=== PATIENT | female | born 1955 | race Caucasian/White ===

== ENCOUNTER 2022-05-03 09:03 | Inpatient (IN) | payer MEDICARE ==
[~2022-05-03] VITALS: Ht 157.5 cm; Wt 39.5 kg
--- NOTE | 2022-05-03 09:26 | NUR ---
Patient BIB [facility] from home. Per report from rescue, patient was found on bathroom unable to get up c/o weakness. 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 Patient upon arrival A/Ox3 c/o neck pain.
--- NOTE | 2022-05-03 09:32 | NUR ---
Dr. Modi on bedside for MSE.
[2022-05-03] MEDS ORDERED: ONDANSETRON 4 MG/2 ML VIAL ONE (09:39)
[2022-05-03] MEDS ORDERED: ONDANSETRON HCL 4 MG TABLET PO ONE (09:45)
[2022-05-03] MEDS ORDERED: IV NORMAL SALINE 1000 ML BAG IV ONE ×2 (09:45→10:30)
[2022-05-03 09:57] LABS: HEMATOCRIT 40.9 % (31.2-41.9); MEAN CORPUSCULAR HEMOGLOBIN 33.3 uug (24.7-32.8); MEAN CORPUSCULAR VOLUME 98.7 fL (75.5-95.3); PLATELET COUNT (AUTO) 252 K/uL (179-408)
[2022-05-03 10:08] LABS: CARBON DIOXIDE 24 mmol/L (21-32); CHLORIDE 111 mmol/L (98-107); CREATININE 1.1 mg/dL (0.6-1.3); GLUCOSE 154 mg/dL (74-106); POTASSIUM 3.5 mmol/L (3.5-5.1); UREA NITROGEN, BLOOD 15 mg/dL (7-18)
[2022-05-03] MEDS ORDERED: CEFTRIAXONE /D5W 50ML IVPB **ER PYXIS IV ONE (10:20)
[2022-05-03 10:23] LABS: *URINE HCG, QUAL NEG (NEGATIVE)
[2022-05-03] MEDS ORDERED: CEFTRIAXONE 1 G in IV DEXTROSE 5% 50 ML IV ONE (10:30)
[2022-05-03] MEDS ORDERED: CLON1TAB12 PO (10:33)
[2022-05-03] MEDS ORDERED: BUTA1CAP5 PO (10:33)
[2022-05-03] MEDS ORDERED: LEVO25TA2 PO (10:33)
--- NOTE | 2022-05-03 10:33 | NUR ---
PATIENT AND PATIENT'S SISTER UNABLE TO RECALL ALL HOME MEDICATIONS AND DOSAGES AT THIS TIME. PATIENT'S SISTER WILL BRING LIST OF MEDICATION SOON SHE CAN.
--- NOTE | 2022-05-03 10:39 | NUR ---
Epic panel call placed, spoke to Renny , he stated she will get a hold of [facility] for admitting.
[2022-05-03] MEDS ORDERED: AZITHROMYCIN 500MG/ D5W 250ML IVPB **ER PYXIS ONLY IV ONE (10:42)
[2022-05-03] MEDS ORDERED: AZITHROMYCIN IV 500 MG in IV DEXTROSE 5% 250 ML IV ONE (10:45)
--- NOTE | 2022-05-03 10:59 | NUR ---
[facility] cam to ER and spoke to Dr Modi.
[2022-05-03] MEDS ORDERED: ONDANSETRON 4 MG/2 ML VIAL IV PRN (11:30)
[2022-05-03] MEDS ORDERED: MAGNESIUM HYDROXIDE 30 ML LIQUID UDC PO PRN (11:30)
[2022-05-03] MEDS ORDERED: TEMAZEPAM 15 MG CAPSULE PO PRN (11:30)
[2022-05-03] MEDS ORDERED: REMEDY ESSENTIAL ZINC PASTE 113 GM TP PRN (11:30)
[2022-05-03] MEDS ORDERED: MORPHINE SULFATE 2 MG/1 ML DISP.SYRIN IV PRN (11:30)
[2022-05-03 12:25] LABS: BILIRUBIN,DIRECT 0.1 mg/dL (0.0-0.2); BILIRUBIN,TOTAL 0.3 mg/dL (0.2-1.0)
--- NOTE | 2022-05-03 12:57 | NUR ---
Pt. admitted to [facility] unit, Room 307 , under care of [facility]. Report given to MERCED Bartlett. Belongs List completed.
[2022-05-03] MEDS: IV NS 1000 ML 1,000 ML IV PRN (13:25)
[2022-05-03] MEDS: ACETAMINOPHEN 325 MG TABLET PO PRN ×2 (14:57→22:10)
--- NOTE | 2022-05-03 15:18 | NUR ---
Patient wants to be placed on DNR. Nic BEVERAGE DISTILLER notified. Will endorse information to contact corrections caseworker for paper to be signed by patient. For now, patient is a full code.
[2022-05-03 16:31] VITALS: BP 153/66
--- NOTE | 2022-05-03 18:53 | NUR ---
Patient tolerated care well throughout shift. Patient wanting to be on DNR. Will endorse information to contact test case developer to have paper filled out by test case developer. IV site patent and intact. Patient's sister at bedside curious about patient's plan of care. Bed left in lowest position with call light within reach. Comfort measures provided. Will endorse information to PM nurse.
[2022-05-03 20:00] VITALS: BP 145/61
[2022-05-04] MEDS: IV NS 1000 ML 1,000 ML IV PRN (03:55)
[2022-05-04 04:29] VITALS: BP 143/65
--- NOTE | 2022-05-04 06:03 | NUR ---
Patient slept intermittently during the night, no acute distress noted. Denies any pain or discomfort. Assisted to the bathroom 3x throughout the shift. Right antecubital IV access intact and patent with NS infusing @ 75ml/hr. Bed in low and locked position. Call light within easy reach.
[2022-05-04 06:17] LABS: HEMATOCRIT 38.9 % (31.2-41.9); MEAN CORPUSCULAR HEMOGLOBIN 32.8 uug (24.7-32.8); MEAN CORPUSCULAR VOLUME 97.4 fL (75.5-95.3); PLATELET COUNT (AUTO) 203 K/uL (179-408)
[2022-05-04 06:27] LABS: CREATININE 0.6 mg/dL (0.6-1.3); MAGNESIUM 2.1 mg/dL (1.8-2.4); PHOSPHOROUS 2.8 mg/dL (2.5-4.9); POTASSIUM 3.1 mmol/L (3.5-5.1)
[2022-05-04] MEDS: PANTOPRAZOLE SODIUM 40 MG TABLET.DR PO SCH (06:29)
[2022-05-04 06:32] LABS: THYROID STIMULATING HORMONE 0.334 mIU/mL (0.358-3.740)
[2022-05-04] MEDS ORDERED: LEVOTHYROXINE SODIUM 175 MCG TABLET PO SCH (09:00)
[2022-05-04] MEDS: LEVOTHYROXINE SODIUM 150 MCG TABLET PO SCH (09:28)
[2022-05-04] MEDS: HYDROCODONE/APAP 5-325MG TABLET PO PRN (09:30)
[2022-05-04 10:00] VITALS: BP 143/65
[2022-05-04] MEDS ORDERED: CEFTRIAXONE 1 G in IV DEXTROSE 5% 50 ML IV SCH (10:00)
[2022-05-04] MEDS ORDERED: POTASSIUM CHLORIDE 20 MEQ TAB.PRT.SR PO ONE (10:00)
[2022-05-04] MEDS ORDERED: AZITHROMYCIN IV 500 MG in IV DEXTROSE 5% 250 ML IV SCH (11:00)
[2022-05-04] MEDS: AZITHROMYCIN 250 MG TABLET PO SCH (11:06)
[2022-05-04 11:56] VITALS: BP 149/74
[2022-05-04] MEDS ORDERED: LEVO175T7 PO (12:05)
[2022-05-04] MEDS ORDERED: PROP20TA7 PO (12:15)
[2022-05-04] MEDS ORDERED: FLUO20CA42 PO (12:15)
[2022-05-04] MEDS ORDERED: MEGE400O5 PO (12:15)
[2022-05-04] MEDS ORDERED: MIRT-93 PO (12:15)
[2022-05-04] MEDS ORDERED: TIZA4TAB5 PO (12:17)
[2022-05-04] MEDS ORDERED: BETH10TA2 PO (12:17)
[2022-05-04] MEDS ORDERED: TAMS-3 PO (12:17)
[2022-05-04 16:00] VITALS: BP 136/69
[2022-05-04] MEDS: TIZANIDINE HCL 4 MG TABLET PO PRN (17:56)
[2022-05-04] MEDS: BETHANECHOL CHLORIDE 10 MG TABLET PO SCH (17:56)
[2022-05-04] MEDS: PROPRANOLOL HCL 20 MG TABLET PO SCH (17:57)
[2022-05-04 19:49] VITALS: BP 114/50
[2022-05-04] MEDS: TAMSULOSIN HCL 0.4 MG CAP.SR.24H PO SCH (20:50)
[2022-05-04] MEDS: MIRTAZAPINE 15 MG TABLET PO SCH (20:50)
[2022-05-05 04:33] VITALS: BP 165/77
[2022-05-05] MEDS: IV NS 1000 ML 1,000 ML IV PRN ×2 (05:05→20:34)
[2022-05-05] MEDS: PANTOPRAZOLE SODIUM 40 MG TABLET.DR PO SCH (06:23)
[2022-05-05] MEDS: LEVOTHYROXINE SODIUM 150 MCG TABLET PO SCH (06:23)
--- NOTE | 2022-05-05 06:29 | NUR ---
Patient slept well during the night. Denies pain/discomfort. In no acute distress. Assisted to the bathroom. IV access to right AC infiltrated, removed and reinserted new IV access to left AC. Kept clean dry and comfortable. Bed kept in locked and low position. Call light within easy reach.
[2022-05-05] MEDS ORDERED: LEVOTHYROXINE SODIUM 50 MCG TABLET PO SCH (07:00)
[2022-05-05 07:06] LABS: HEMATOCRIT 39.1 % (31.2-41.9); MEAN CORPUSCULAR HEMOGLOBIN 33.9 uug (24.7-32.8); MEAN CORPUSCULAR VOLUME 97.8 fL (75.5-95.3); PLATELET COUNT (AUTO) 204 K/uL (179-408)
[2022-05-05 07:15] LABS: CREATININE 0.6 mg/dL (0.6-1.3)
[2022-05-05] MEDS: TIZANIDINE HCL 4 MG TABLET PO PRN (08:28)
[2022-05-05] MEDS: FLUOXETINE HCL 20 MG CAPSULE PO SCH (08:28)
[2022-05-05] MEDS: PROPRANOLOL HCL 20 MG TABLET PO SCH ×3 (08:29→17:00)
[2022-05-05] MEDS: MEGESTROL ACETATE 400 MG/10 ML LIQUID UDC PO SCH (08:29)
[2022-05-05] MEDS: BETHANECHOL CHLORIDE 10 MG TABLET PO SCH ×3 (08:32→17:03)
[2022-05-05] MEDS ORDERED: POTASSIUM CHLORIDE 20 MEQ TAB.PRT.SR PO ONE ×2 (09:00→14:00)
[2022-05-05] MEDS ORDERED: CLONAZEPAM 0.5 MG TABLET PO PRN (09:00)
--- NOTE | 2022-05-05 09:46 | NUR ---
Awake alert and oriented to name. Confused states she's in cruise, was reoriented. Noted with good appetite, no nausea/vomiting. IVF infusing as ordered no signs of infiltration noted. Due meds given and tolerated. Comfortable on room air no acute distress. Kept clean and comfortable. Call light in reach. Will cont to monitor.
[2022-05-05] MEDS: ENSURE ENLIVE (VAN) 240 ML LIQUID PO SCH ×2 (11:04→17:02)
[2022-05-05] MEDS: PROTEIN SUPPLEMENT (PROSTAT) 30 ML LIQUID PO SCH ×2 (11:04→17:03)
[2022-05-05] MEDS: AZITHROMYCIN 250 MG TABLET PO SCH (12:30)
[2022-05-05 12:53] VITALS: BP 130/60
[2022-05-05] MEDS: HYDROCODONE/APAP 5-325MG TABLET PO PRN ×2 (14:20→19:58)
--- NOTE | 2022-05-05 15:13 | NUR ---
Patient very agitated, getting off the bed and wanting to go home. Not aware of safety needs. Reoriented prn but confused and forgetful. Put in reclining chair comfortably. Addendum: 05/05/22 at 1516 by SHANE FERNANDEZ RN And monitored closely
[2022-05-05] MEDS: LORAZEPAM 2 MG/1 ML VIAL IV PRN ×2 (16:06→22:06)
[2022-05-05 16:40] VITALS: BP 101/76
[2022-05-05] MEDS ORDERED: HALOPERIDOL DECANOATE 50 MG/1 ML AMPUL IM ONE (17:45)
[2022-05-05] MEDS ORDERED: diphenhydrAMINE 50 MG/1 ML VIAL IM ONE (17:45)
[2022-05-05] MEDS ORDERED: HALOPERIDOL LACTATE 5 MG/1 ML VIAL IM ONE (17:45)
--- NOTE | 2022-05-05 18:30 | NUR ---
SISTER LEAVING AT THIS TIME. CALM AND CHEERFUL. WATCHING TV, MEDS FOR AGITATION HELD.
[2022-05-05] MEDS: MIRTAZAPINE 15 MG TABLET PO SCH (20:02)
[2022-05-05] MEDS: TAMSULOSIN HCL 0.4 MG CAP.SR.24H PO SCH (20:03)
[2022-05-05 20:09] VITALS: BP 132/66
--- NOTE | 2022-05-05 22:00 | NUR ---
VERY AGITATED AND CLIMBING OUT OF BED. MED WITH ATIVAN FOR AGITATION & HALLUCINATION. ASSISTED TO BATHROOM & VOIDED QS WITH SMALL STOOL. RETURNED TO BED.
--- NOTE | 2022-05-05 23:00 | NUR ---
DR. BROCK CALLED TO SEE PATIENT. PATIENT ASLEEP AT THIS TIME.
--- NOTE | 2022-05-05 23:30 | NUR ---
AWAKE AND DROWSY. CALM AT THIS TIME. MED EFFECTIVE.
[2022-05-06 04:20] VITALS: BP 164/84
[2022-05-06] MEDS: PANTOPRAZOLE SODIUM 40 MG TABLET.DR PO SCH (06:03)
[2022-05-06] MEDS: LEVOTHYROXINE SODIUM 150 MCG TABLET PO SCH (06:03)
[2022-05-06 06:28] LABS: HEMATOCRIT 41.9 % (31.2-41.9); MEAN CORPUSCULAR HEMOGLOBIN 33.2 uug (24.7-32.8); MEAN CORPUSCULAR VOLUME 96.5 fL (75.5-95.3); PLATELET COUNT (AUTO) 218 K/uL (179-408)
[2022-05-06 06:45] LABS: CREATININE 0.7 mg/dL (0.6-1.3); POTASSIUM 3.7 mmol/L (3.5-5.1)
[2022-05-06] MEDS ORDERED: CLONAZEPAM 1 MG TABLET PO PRN (07:15)
--- NOTE | 2022-05-06 08:00 | NUR ---
Received in bed awake, agitated, climbing off the bed stating she wants to go home, risk for fall confused but able to be redirected sometimes. No acute distress. Reoriented prn. Seen and examined by Tool Honing Machine Set Up Operator cassidy ordered to give klonopin for anxiety. Removed her Iv and refused to have another one inserted. Assisted with hygiene needs by PT. Kept comfortable. Needs attended.
[2022-05-06] MEDS: FLUOXETINE HCL 20 MG CAPSULE PO SCH (08:47)
[2022-05-06] MEDS: MEGESTROL ACETATE 400 MG/10 ML LIQUID UDC PO SCH (08:48)
[2022-05-06] MEDS: PROPRANOLOL HCL 20 MG TABLET PO SCH ×3 (08:48→17:08)
[2022-05-06] MEDS: BETHANECHOL CHLORIDE 10 MG TABLET PO SCH ×3 (08:48→17:08)
[2022-05-06] MEDS: PROTEIN SUPPLEMENT (PROSTAT) 30 ML LIQUID PO SCH ×2 (08:49→17:08)
[2022-05-06] MEDS: ENSURE ENLIVE (VAN) 240 ML LIQUID PO SCH ×2 (08:49→17:08)
--- NOTE | 2022-05-06 11:20 | NUR ---
WOUND CARE CONSULT: PT PRESENTS VERY THIN AND BONY WITH MULTIPLE DEEP TISSUE INJURIES (INTACT) TO UPPER/MIDBACK, SACRAL AREA AND RT HIP REGION, ALLL PRESENT ON ADMISSION. SPOKE WITH PT'S SISTER AT BEDSIDE WHO STATES THAT SHE IS NOT SURE HOW LONG PT WAS DOWN IN THE BATHROOM. RECOMMENDATIONS MADE FOR SKIN PROTECTION AND WOUND CARE. DISCUSSED WITH NURSING STAFF AND PT'S SISTER. DIETARY CONSULT IN PLACE. MD IN AGREEMENT WITH PLAN OF CARE.
[2022-05-06 12:05] VITALS: BP 119/60
[2022-05-06 15:45] VITALS: BP 119/67
--- NOTE | 2022-05-06 16:32 | NUR ---
Report given to RN Norman for continuation of care.
[2022-05-06 17:08] VITALS: BP 119/60
--- NOTE | 2022-05-06 18:47 | NUR ---
Pt with sister at bedside assisting pt with her feeding. Educated sister re: Aspiration precautions during feed. HOB elevated. PT ambulated to bathroom with SBA. PT denies any c/o pain. Call light is within reach.
== END 2022-05-06 19:00 | DRG 871 ==
LOC: ER 09:03 → MEDSURG3 12:01
PROVIDERS: ADMIT Nurse Practitioner Acute Care; ATTEND Nurse Practitioner Acute Care
DX: A41.9 Sepsis, unspecified organism (principal); J15.9 Unspecified bacterial pneumonia; E87.2 Acidosis; M62.82 Rhabdomyolysis; E87.0 Hyperosmolality and hypernatremia; E03.9 Hypothyroidism, unspecified; E86.1 Hypovolemia; Z87.820 Personal history of traumatic brain injury; R53.1 Weakness; Z20.822 Contact with and (suspected) exposure to COVID-19; Z91.81 History of falling; R53.82 Chronic fatigue, unspecified; E87.6 Hypokalemia; F32.A Depression, unspecified; G93.89 Other specified disorders of brain; F07.81 Postconcussional syndrome
CPT/HCPCS: 36415; 70450; 71045; 72125; 83605; 83735; 84100; 84443; 84484; 84703; 85025; 85730; 87040; 93005; 97161; A4663; A6209; G0378; J0456; J0696; J2060; J2405; J7040; J7050; J8999; Q0144

== ENCOUNTER 2022-05-06 20:15 | Inpatient (IN) | payer MEDICARE ==
[~2022-05-06] VITALS: Ht 167.6 cm; Wt 39.0 kg
[~2022-05-06 20:15] MED LIST: BETH10TA2 PO; CLON1TAB12 PO; FLUO20CA42 PO; LEVO175T7 PO; MEGE400O5 PO; MIRT-93 PO; PROP20TA7 PO; TAMS-3 PO; TIZA4TAB5 PO
[2022-05-06 20:45] VITALS: BP 131/63
[2022-05-06] MEDS ORDERED: REMEDY ESSENTIAL ZINC PASTE 113 GM TOP PRN (20:45)
[2022-05-06] MEDS: risperiDONE 0.5 MG TABLET PO SCH (22:57)
[2022-05-06] MEDS: MIRTAZAPINE 15 MG TABLET PO SCH (22:57)
--- NOTE | 2022-05-07 03:59 | NUR ---
Admitted a 67 yr old female admittede from [facility] to rehab with admitting diagnosis of pneumonia/sepsis. Hx of TBI, HTN and falls. Awake,alert and oriented x1. Confused and disoriented. All needs attended. Seen by Dr Godoy last evening. Incontinent of bowel and bladder. Kept clean and dry. No BM noted this shift. VSS. Will monitor patient. Skin with some bruising noted along the spinal cord area, right hip and sacral area. Mepilex applied. Will monitor patient. All due meds given. Siderails up for safety.
[2022-05-07 05:09] VITALS: BP 144/74
[2022-05-07] MEDS: LEVOTHYROXINE SODIUM 150 MCG TABLET PO SCH (06:10)
[2022-05-07 08:00] VITALS: BP 136/81
[2022-05-07] MEDS: FLUOXETINE HCL 20 MG CAPSULE PO SCH (08:59)
[2022-05-07] MEDS: BETHANECHOL CHLORIDE 10 MG TABLET PO SCH ×3 (08:59→17:07)
[2022-05-07] MEDS: CLONAZEPAM 1 MG TABLET PO SCH (08:59)
[2022-05-07] MEDS: MEGESTROL ACETATE 400 MG/10 ML LIQUID UDC PO SCH (08:59)
[2022-05-07] MEDS: risperiDONE 0.5 MG TABLET PO SCH ×2 (08:59→20:24)
[2022-05-07] MEDS: PROPRANOLOL HCL 20 MG TABLET PO SCH ×3 (09:01→17:07)
[2022-05-07 16:01] VITALS: BP 120/82
[2022-05-07 20:00] VITALS: BP 137/74
[2022-05-07] MEDS: TAMSULOSIN HCL 0.4 MG CAP.SR.24H PO SCH (20:19)
[2022-05-07] MEDS: MIRTAZAPINE 15 MG TABLET PO SCH (20:21)
[2022-05-07] MEDS: NEOMY/BACITRAC/POLYMI OINT 28.35 GM TUBE TOP SCH (21:00)
[2022-05-07] MEDS ORDERED: MIRTAZAPINE 15 MG TABLET PO SCH (21:00)
[2022-05-08 04:00] VITALS: BP 150/88
--- NOTE | 2022-05-08 04:23 | NUR ---
Awake alert and oriented x1-2 Confused and disoriented. VSS Needs attended. Fall precautions maintained. Tolerated po meds well. Incontinent of bowel and bladder. Kept clean and dry. Siderails up for safety. No complaints presented during the shift.
[2022-05-08] MEDS: LEVOTHYROXINE SODIUM 150 MCG TABLET PO SCH (06:14)
[2022-05-08 08:00] VITALS: BP 163/80
[2022-05-08] MEDS: CLONAZEPAM 1 MG TABLET PO SCH (08:25)
[2022-05-08] MEDS: PROPRANOLOL HCL 20 MG TABLET PO SCH ×3 (08:25→17:02)
[2022-05-08] MEDS: FLUOXETINE HCL 20 MG CAPSULE PO SCH (08:26)
[2022-05-08] MEDS: risperiDONE 0.5 MG TABLET PO SCH ×2 (08:26→20:20)
[2022-05-08] MEDS: MEGESTROL ACETATE 400 MG/10 ML LIQUID UDC PO SCH (08:26)
[2022-05-08] MEDS: TIZANIDINE HCL 4 MG TABLET PO PRN (08:27)
[2022-05-08] MEDS: BETHANECHOL CHLORIDE 10 MG TABLET PO SCH ×3 (08:28→17:03)
[2022-05-08] MEDS: NEOMY/BACITRAC/POLYMI OINT 28.35 GM TUBE TOP SCH (08:28)
[2022-05-08] MEDS: PROTEIN SUPPLEMENT (PROSTAT) 30 ML LIQUID PO SCH (10:49)
[2022-05-08] MEDS: GLUCERNA SHAKE 237 ML CAN PO SCH ×2 (12:26→17:03)
--- NOTE | 2022-05-08 12:26 | NUR ---
WOUND CARE CONSULT: PT FOLLOWED BY PLASTIC SURGERY TEAM FOR DEEP TISSUE INJURIES/ABRASIONS WHICH WERE NOTED TO BE PRESENT ON ADMISSION TO UPPER/MIDBACK, SACRUM AND RT HIP. DEFER TO [facility] FOR WOUND TREATMENT PLAN. DISCUSSED SKIN PROTECTION WITH NURSING STAFF. MD IN AGREEMENT WITH PLAN OF CARE.
--- NOTE | 2022-05-08 12:38 | NUR ---
INTERDISCIPLINARY TEAM CONFERENCE
--- NOTE | 2022-05-08 14:55 | NUR ---
Awake,alert and oriented x2-3. Confused and disoriented at times . Sister at bed side .Seen by the wound hr shared services consultant nurse. Incontinent of bowel and bladder. Kept clean and dry. No BM noted at this time during the shift. Skin with some bruising back along the spinal cord area, right hip and sacral area DTI. Tx done as ordered Mepilex applied. Will monitor patient for comfort and safety Up with PT ambulating in the hallway. All due Meds given.
[2022-05-08 15:14] VITALS: BP 134/66
[2022-05-08 20:00] VITALS: BP 141/73
[2022-05-08] MEDS: MIRTAZAPINE 15 MG TABLET PO SCH (20:20)
[2022-05-08] MEDS: TAMSULOSIN HCL 0.4 MG CAP.SR.24H PO SCH (20:20)
[2022-05-09 04:34] VITALS: BP 157/82
[2022-05-09] MEDS: LEVOTHYROXINE SODIUM 150 MCG TABLET PO SCH (06:27)
[2022-05-09 06:37] LABS: HEMATOCRIT 41.2 % (31.2-41.9); MEAN CORPUSCULAR HEMOGLOBIN 33.1 uug (24.7-32.8); MEAN CORPUSCULAR VOLUME 96.5 fL (75.5-95.3); PLATELET COUNT (AUTO) 243 K/uL (179-408)
[2022-05-09 07:14] LABS: THYROID STIMULATING HORMONE 2.657 mIU/mL (0.358-3.740)
[2022-05-09 07:31] LABS: ALANINE AMINOTRANSFERASE 68 U/L (14-59); ALKALINE PHOSPHATASE 60 U/L (50-136); ASPARTATE AMINOTRANSFERASE 39 U/L (15-37); BILIRUBIN,TOTAL 0.3 mg/dL (0.2-1.0); CARBON DIOXIDE 25 mmol/L (21-32); CHLORIDE 107 mmol/L (98-107); CHOLESTEROL 145 mg/dL (<200); CREATININE 0.7 mg/dL (0.6-1.3); GLUCOSE 115 mg/dL (74-106); HDL CHOLESTEROL 52 mg/dL (40-60); MAGNESIUM 2.1 mg/dL (1.8-2.4); PHOSPHOROUS 3.8 mg/dL (2.5-4.9); POTASSIUM 3.4 mmol/L (3.5-5.1); TOTAL PROTEIN, SERUM 6.4 g/dL (6.4-8.2); TRIGLYCERIDES 32 MG/DL (30-150); UREA NITROGEN, BLOOD 27 mg/dL (7-18)
[2022-05-09 07:44] VITALS: BP 158/67
[2022-05-09 08:02] LABS: CREATINE KINASE, TOTAL 203 U/L (26-192)
[2022-05-09] MEDS: PROTEIN SUPPLEMENT (PROSTAT) 30 ML LIQUID PO SCH (08:51)
[2022-05-09] MEDS: GLUCERNA SHAKE 237 ML CAN PO SCH ×3 (08:51→16:09)
[2022-05-09] MEDS: risperiDONE 0.5 MG TABLET PO SCH ×2 (08:52→20:36)
[2022-05-09] MEDS: CLONAZEPAM 1 MG TABLET PO SCH (08:52)
[2022-05-09] MEDS: TIZANIDINE HCL 4 MG TABLET PO PRN (08:52)
[2022-05-09] MEDS: FLUOXETINE HCL 20 MG CAPSULE PO SCH (08:53)
[2022-05-09] MEDS: PROPRANOLOL HCL 20 MG TABLET PO SCH ×3 (08:53→16:09)
[2022-05-09] MEDS: BETHANECHOL CHLORIDE 10 MG TABLET PO SCH ×3 (08:59→16:09)
[2022-05-09] MEDS: MEGESTROL ACETATE 400 MG/10 ML LIQUID UDC PO SCH (08:59)
[2022-05-09] MEDS: NEOMY/BACITRAC/POLYMI OINT 28.35 GM TUBE TOP SCH (09:00)
[2022-05-09] MEDS ORDERED: POTASSIUM CHLORIDE 20 MEQ TAB.PRT.SR PO ONE (12:00)
[2022-05-09 15:02] VITALS: BP 126/60
--- NOTE | 2022-05-09 15:40 | NUR ---
INDIVIDUALIZED PLAN OF CARE
[2022-05-09 16:45] LABS: *BILIRUBIN,URIN NEGATIVE (NEGATIVE); *BLOOD, URINE NEGATIVE (NEGATIVE); *CLARITY,URINE CLEAR (CLEAR); *COLOR,URINE YELLOW (YELLOW); *KETONES,URINE NEGATIVE (NEGATIVE); *UROBILINOGEN,URINE 0.2 E.U./dl (NORMAL); LEUKOCYTE ESTERASE ,URINE TRACE (NEGATIVE); NITRITE, URINE NEGATIVE (NEGATIVE); PH,URINE 6.5 (5.0-8.0); UGLUCOSE NEGATIVE (NEGATIVE)
--- NOTE | 2022-05-09 18:34 | NUR ---
Patient tolerated care well throughout shift with no complaints of pain or distress. Bed left in lowest position with call light within reach. Will endorse information to PM nurse.
[2022-05-09] MEDS: MIRTAZAPINE 15 MG TABLET PO SCH (20:35)
[2022-05-09] MEDS: TAMSULOSIN HCL 0.4 MG CAP.SR.24H PO SCH (20:35)
[2022-05-09 20:37] LABS: BACTERIA,URINE NONE SEEN /HPF (NONE SEEN); RBC,URINE 0-3 /HPF (0-3); SQUAMOUS EPITHELIAL CELL,UR FEW /HPF (NONE SEEN)
[2022-05-09 23:09] VITALS: BP 134/84
[2022-05-10] MEDS: PROPRANOLOL HCL 20 MG TABLET PO SCH ×3 (04:04→17:18)
--- NOTE | 2022-05-10 04:05 | NUR ---
BP 172/77. asymptomatic, Propranolol 20 mg given early as scheduled. Will endorse to oncoming nurse accordingly.
[2022-05-10 04:26] VITALS: BP 172/77
[2022-05-10] MEDS: LEVOTHYROXINE SODIUM 150 MCG TABLET PO SCH (06:04)
--- NOTE | 2022-05-10 06:17 | NUR ---
BP rechecked, 136/71 at this time.
[2022-05-10 06:18] VITALS: BP 136/71
[2022-05-10 07:39] VITALS: BP 146/63
[2022-05-10] MEDS: CLONAZEPAM 1 MG TABLET PO SCH (07:41)
[2022-05-10] MEDS: risperiDONE 0.5 MG TABLET PO SCH ×2 (07:41→20:04)
[2022-05-10] MEDS: MEGESTROL ACETATE 400 MG/10 ML LIQUID UDC PO SCH (07:42)
[2022-05-10] MEDS: BETHANECHOL CHLORIDE 10 MG TABLET PO SCH ×3 (07:42→17:18)
[2022-05-10] MEDS: FLUOXETINE HCL 20 MG CAPSULE PO SCH (07:42)
[2022-05-10] MEDS: GLUCERNA SHAKE 237 ML CAN PO SCH ×3 (07:43→17:18)
[2022-05-10] MEDS: NEOMY/BACITRAC/POLYMI OINT 28.35 GM TUBE TOP SCH (07:44)
[2022-05-10] MEDS: PROTEIN SUPPLEMENT (PROSTAT) 30 ML LIQUID PO SCH (07:44)
[2022-05-10 15:25] VITALS: BP 145/73
[2022-05-10 20:00] VITALS: BP 141/58
[2022-05-10] MEDS: MIRTAZAPINE 15 MG TABLET PO SCH (20:04)
[2022-05-10] MEDS: TAMSULOSIN HCL 0.4 MG CAP.SR.24H PO SCH (20:04)
[2022-05-11 03:55] VITALS: BP 147/86
[2022-05-11] MEDS: LEVOTHYROXINE SODIUM 150 MCG TABLET PO SCH (06:10)
[2022-05-11 07:30] VITALS: BP 151/79
--- NOTE | 2022-05-11 07:30 | NUR ---
RECEIVED PATIENT IN DED AWAKE ALERT TO SELF WITH DISORIENTATION AT THIS TIME ASSISTED WITH REPOSITIONING Q2H ALL NEEDS ANTICIPATED AND SATISFIED ON ROOM AIR WITH NO SOB CALL LIGHTS AND PERSONAL BELONGINGS ARE WITHIN EASY REACH AT THIS TIME WILL CONTINUE TO OBSERVE
[2022-05-11] MEDS: FLUOXETINE HCL 20 MG CAPSULE PO SCH (08:26)
[2022-05-11] MEDS: MEGESTROL ACETATE 400 MG/10 ML LIQUID UDC PO SCH (08:26)
[2022-05-11] MEDS: CLONAZEPAM 1 MG TABLET PO SCH (08:26)
[2022-05-11] MEDS: risperiDONE 0.5 MG TABLET PO SCH ×2 (08:26→20:07)
[2022-05-11] MEDS: TIZANIDINE HCL 4 MG TABLET PO PRN ×2 (08:26→12:32)
[2022-05-11] MEDS: BETHANECHOL CHLORIDE 10 MG TABLET PO SCH ×3 (08:27→16:43)
[2022-05-11] MEDS: PROPRANOLOL HCL 20 MG TABLET PO SCH ×3 (08:27→16:42)
[2022-05-11] MEDS: PROTEIN SUPPLEMENT (PROSTAT) 30 ML LIQUID PO SCH (08:28)
[2022-05-11] MEDS: NEOMY/BACITRAC/POLYMI OINT 28.35 GM TUBE TOP SCH (08:28)
[2022-05-11] MEDS: GLUCERNA SHAKE 237 ML CAN PO SCH ×3 (08:28→16:43)
[2022-05-11 16:00] VITALS: BP 131/60
--- NOTE | 2022-05-11 17:00 | NUR ---
PATIENT C/O HAS A HEADACHE SHE HAS NO ORDER FOR TYLENOL MD NOTIFIED WITH NEW ORDERS AND NOTED.
[2022-05-11] MEDS: ACETAMINOPHEN 325 MG TABLET PO PRN (17:33)
--- NOTE | 2022-05-11 18:00 | NUR ---
PATIENT WAS MEDICATED WITH TYLENOL ORDERED AND IS RESTING AT THIS TIME WILL CONTINUE TO OBSERVE.
[2022-05-11] MEDS: MIRTAZAPINE 15 MG TABLET PO SCH (20:07)
[2022-05-11] MEDS: TAMSULOSIN HCL 0.4 MG CAP.SR.24H PO SCH (20:07)
[2022-05-11 20:53] VITALS: BP 133/66
[2022-05-12 04:29] VITALS: BP 161/73
[2022-05-12] MEDS: LEVOTHYROXINE SODIUM 150 MCG TABLET PO SCH (06:29)
[2022-05-12 07:26] VITALS: BP 160/80
[2022-05-12] MEDS: FLUOXETINE HCL 20 MG CAPSULE PO SCH (08:13)
[2022-05-12] MEDS: risperiDONE 0.5 MG TABLET PO SCH ×2 (08:13→20:50)
[2022-05-12] MEDS: TIZANIDINE HCL 4 MG TABLET PO PRN ×2 (08:13→17:08)
[2022-05-12] MEDS: PROPRANOLOL HCL 20 MG TABLET PO SCH ×3 (08:14→17:00)
[2022-05-12] MEDS: GLUCERNA SHAKE 237 ML CAN PO SCH ×3 (08:15→17:09)
[2022-05-12] MEDS: PROTEIN SUPPLEMENT (PROSTAT) 30 ML LIQUID PO SCH (08:16)
[2022-05-12] MEDS: CLONAZEPAM 1 MG TABLET PO SCH (08:18)
[2022-05-12] MEDS: MEGESTROL ACETATE 400 MG/10 ML LIQUID UDC PO SCH (08:19)
[2022-05-12] MEDS: BETHANECHOL CHLORIDE 10 MG TABLET PO SCH ×3 (08:20→17:08)
[2022-05-12] MEDS: NEOMY/BACITRAC/POLYMI OINT 28.35 GM TUBE TOP SCH (09:26)
[2022-05-12] MEDS: LISINOPRIL 5 MG TABLET PO SCH (10:45)
[2022-05-12 16:19] VITALS: BP 106/55
[2022-05-12 20:32] VITALS: BP 113/48
[2022-05-12] MEDS: MIRTAZAPINE 15 MG TABLET PO SCH (20:50)
[2022-05-12] MEDS: TAMSULOSIN HCL 0.4 MG CAP.SR.24H PO SCH (20:50)
[2022-05-13 04:08] VITALS: BP 127/67
[2022-05-13] MEDS: LEVOTHYROXINE SODIUM 150 MCG TABLET PO SCH (06:31)
[2022-05-13 07:50] VITALS: BP 124/68
--- NOTE | 2022-05-13 08:00 | NUR ---
RECEIVED PATIENT IN BED AWAKE ALERT ORIENTED FOLLOWS COMMANDS BUT HAS DIFFICULTY MAKING NEEDS KNOWN.ALL NEEDS ANTICIPATED AND SATISFIED.MAX ASSIST FOR ALL ADL WILL CONTINUE WITH ACUTE THERAPEUTIC EXERCISES ORDERED WILL CONTINUE TO OBSERVE AND PROVIDE COMFORT AND SAFETY.
[2022-05-13] MEDS: GLUCERNA SHAKE 237 ML CAN PO SCH ×3 (08:22→16:23)
[2022-05-13] MEDS: risperiDONE 0.5 MG TABLET PO SCH ×2 (08:22→20:14)
[2022-05-13] MEDS: PROTEIN SUPPLEMENT (PROSTAT) 30 ML LIQUID PO SCH (08:22)
[2022-05-13] MEDS: FLUOXETINE HCL 20 MG CAPSULE PO SCH (08:22)
[2022-05-13] MEDS: CLONAZEPAM 1 MG TABLET PO SCH (08:22)
[2022-05-13] MEDS: MEGESTROL ACETATE 400 MG/10 ML LIQUID UDC PO SCH (08:23)
[2022-05-13] MEDS: BETHANECHOL CHLORIDE 10 MG TABLET PO SCH ×3 (08:23→16:22)
[2022-05-13] MEDS: NEOMY/BACITRAC/POLYMI OINT 28.35 GM TUBE TOP SCH (08:24)
[2022-05-13] MEDS: LISINOPRIL 5 MG TABLET PO SCH (08:26)
[2022-05-13] MEDS: PROPRANOLOL HCL 20 MG TABLET PO SCH ×3 (08:26→16:22)
[2022-05-13 16:00] VITALS: BP 117/49
--- NOTE | 2022-05-13 18:00 | NUR ---
TOLERATING THERAPY ORDERED APPETITE IS FAIR SEEMS TO LIKE TO DRINK HER GLUCERNA ORDERED AND CONSUMED 100 PERCENT OF THE GLUCERNA EACH TIME WILL CONTINUE TO OBSERVE AND PROVIDE SAFETY AND COMFORT
[2022-05-13 20:06] VITALS: BP 119/63
[2022-05-13] MEDS: TAMSULOSIN HCL 0.4 MG CAP.SR.24H PO SCH (20:14)
[2022-05-13] MEDS: MIRTAZAPINE 15 MG TABLET PO SCH (20:14)
[2022-05-14 04:00] VITALS: BP 127/72
[2022-05-14] MEDS: LEVOTHYROXINE SODIUM 150 MCG TABLET PO SCH (06:17)
[2022-05-14 08:00] VITALS: BP 130/57
[2022-05-14] MEDS: PROTEIN SUPPLEMENT (PROSTAT) 30 ML LIQUID PO SCH (08:05)
[2022-05-14] MEDS: GLUCERNA SHAKE 237 ML CAN PO SCH ×3 (08:05→16:44)
[2022-05-14] MEDS: LISINOPRIL 5 MG TABLET PO SCH (08:40)
[2022-05-14] MEDS: FLUOXETINE HCL 20 MG CAPSULE PO SCH (08:40)
[2022-05-14] MEDS: PROPRANOLOL HCL 20 MG TABLET PO SCH ×3 (08:41→16:44)
[2022-05-14] MEDS: BETHANECHOL CHLORIDE 10 MG TABLET PO SCH ×3 (08:41→16:43)
[2022-05-14] MEDS: MEGESTROL ACETATE 400 MG/10 ML LIQUID UDC PO SCH (08:41)
[2022-05-14] MEDS: NEOMY/BACITRAC/POLYMI OINT 28.35 GM TUBE TOP SCH (08:42)
[2022-05-14] MEDS: CLONAZEPAM 1 MG TABLET PO SCH (08:49)
[2022-05-14] MEDS: risperiDONE 0.5 MG TABLET PO SCH ×2 (08:49→20:15)
--- NOTE | 2022-05-14 10:00 | NUR ---
ALERT COOPERATIVE PT/OT REMAINS IN PROGRESS ORDERED WITH FAIR ENDURANCE REQUIRES MAX ASSIST FOR ADL WILL CONTINUE TO OBSERVE.
[2022-05-14 16:10] VITALS: BP 107/58
--- NOTE | 2022-05-14 18:00 | NUR ---
RESTING WITH NO C/O AT THIS TIME
[2022-05-14 20:00] VITALS: BP 114/50
[2022-05-14] MEDS: MIRTAZAPINE 15 MG TABLET PO SCH (20:15)
[2022-05-14] MEDS: TAMSULOSIN HCL 0.4 MG CAP.SR.24H PO SCH (20:15)
[2022-05-15 04:00] VITALS: BP 147/71
[2022-05-15] MEDS: LEVOTHYROXINE SODIUM 150 MCG TABLET PO SCH (06:08)
[2022-05-15 08:00] VITALS: BP 142/78
[2022-05-15] MEDS: PROPRANOLOL HCL 20 MG TABLET PO SCH ×3 (09:09→17:00)
[2022-05-15] MEDS: risperiDONE 0.5 MG TABLET PO SCH ×2 (09:10→20:35)
[2022-05-15] MEDS: FLUOXETINE HCL 20 MG CAPSULE PO SCH (09:10)
[2022-05-15] MEDS: TIZANIDINE HCL 4 MG TABLET PO PRN (09:11)
[2022-05-15] MEDS: BETHANECHOL CHLORIDE 10 MG TABLET PO SCH ×3 (09:12→17:51)
[2022-05-15] MEDS: LISINOPRIL 5 MG TABLET PO SCH (09:13)
[2022-05-15] MEDS: GLUCERNA SHAKE 237 ML CAN PO SCH ×3 (09:13→17:31)
[2022-05-15] MEDS: PROTEIN SUPPLEMENT (PROSTAT) 30 ML LIQUID PO SCH (09:13)
[2022-05-15] MEDS: MEGESTROL ACETATE 400 MG/10 ML LIQUID UDC PO SCH (09:13)
[2022-05-15] MEDS: NEOMY/BACITRAC/POLYMI OINT 28.35 GM TUBE TOP SCH (09:14)
[2022-05-15] MEDS: CLONAZEPAM 1 MG TABLET PO SCH (09:26)
--- NOTE | 2022-05-15 15:13 | NUR ---
INTERDISCIPLINARY TEAM CONFERENCE
[2022-05-15 15:49] VITALS: BP 111/55
--- NOTE | 2022-05-15 18:30 | NUR ---
Patient remains alert, not in any form of distress on room air. She denies any pain or discomfort. She is compliant with medications and care. Kept clean and comfortable. Turned and repositioned every 2 hours.
[2022-05-15 19:57] VITALS: BP 114/56
[2022-05-15] MEDS: MIRTAZAPINE 15 MG TABLET PO SCH (20:35)
[2022-05-15] MEDS: TAMSULOSIN HCL 0.4 MG CAP.SR.24H PO SCH (20:35)
[2022-05-16] MEDS: LEVOTHYROXINE SODIUM 150 MCG TABLET PO SCH (07:00)
--- NOTE | 2022-05-16 07:10 | NUR ---
ASSUME CARE, BEDSIDE REPORT OBTAINED.PATIENT A, AND ALERT, NO DISTRESS NOTED.
[2022-05-16 08:00] VITALS: BP 136/63
[2022-05-16] MEDS: GLUCERNA SHAKE 237 ML CAN PO SCH ×3 (08:22→17:20)
[2022-05-16] MEDS: risperiDONE 0.5 MG TABLET PO SCH ×2 (08:24→21:02)
[2022-05-16] MEDS: PROPRANOLOL HCL 20 MG TABLET PO SCH ×3 (08:24→17:21)
[2022-05-16] MEDS: BETHANECHOL CHLORIDE 10 MG TABLET PO SCH ×3 (08:25→17:21)
[2022-05-16] MEDS: CLONAZEPAM 1 MG TABLET PO SCH (08:26)
[2022-05-16] MEDS: FLUOXETINE HCL 20 MG CAPSULE PO SCH (08:26)
[2022-05-16] MEDS: PROTEIN SUPPLEMENT (PROSTAT) 30 ML LIQUID PO SCH (08:28)
--- NOTE | 2022-05-16 08:45 | NUR ---
OOB UP IN W/C, MED WITH MORNING MEDS PO AND LEAVING UNIT FOR PT.
[2022-05-16] MEDS: LISINOPRIL 5 MG TABLET PO SCH (09:00)
--- NOTE | 2022-05-16 11:00 | NUR ---
BACK FROM PT, NO DISTRESS NOTED,VSS.SET UP FOR LUNCH AND FAMILY IN VISITING
[2022-05-16] MEDS: MEGESTROL ACETATE 400 MG/10 ML LIQUID UDC PO SCH (11:07)
[2022-05-16] MEDS: NEOMY/BACITRAC/POLYMI OINT 28.35 GM TUBE TOP SCH (11:10)
[2022-05-16 11:58] VITALS: BP 99/42
[2022-05-16 15:46] VITALS: BP 104/37
--- NOTE | 2022-05-16 16:00 | NUR ---
NO DISTRESS NOTED,DENIES DISCOMFORT, LYING IN BED RESTING. ABRASIONS AND HEALING WOUND TO BACK WITH MEPILEX INTACT.
[2022-05-16 17:00] VITALS: BP 118/53
--- NOTE | 2022-05-16 19:15 | NUR ---
Received patient on bed, alert and oriented x2-3, not in respiratory distress, no complaint of pain. Safety precautions provided.
--- NOTE | 2022-05-16 19:20 | NUR ---
REPORT GIVEN TO INCOMING RN ASSUMING CARE
[2022-05-16 20:17] VITALS: BP 114/58
[2022-05-16] MEDS: MIRTAZAPINE 15 MG TABLET PO SCH (21:02)
[2022-05-16] MEDS: TAMSULOSIN HCL 0.4 MG CAP.SR.24H PO SCH (21:02)
[2022-05-16] MEDS: ACETAMINOPHEN 325 MG TABLET PO PRN (21:06)
[2022-05-17 04:58] VITALS: BP 135/85
[2022-05-17] MEDS: LEVOTHYROXINE SODIUM 150 MCG TABLET PO SCH (06:14)
[2022-05-17] MEDS: CLONAZEPAM 1 MG TABLET PO SCH (08:25)
[2022-05-17] MEDS: FLUOXETINE HCL 20 MG CAPSULE PO SCH (08:29)
[2022-05-17] MEDS: BETHANECHOL CHLORIDE 10 MG TABLET PO SCH ×3 (08:29→16:31)
[2022-05-17] MEDS: TIZANIDINE HCL 4 MG TABLET PO PRN (08:29)
[2022-05-17] MEDS: MEGESTROL ACETATE 400 MG/10 ML LIQUID UDC PO SCH (08:29)
[2022-05-17] MEDS: PROPRANOLOL HCL 20 MG TABLET PO SCH ×3 (08:30→17:00)
[2022-05-17] MEDS: LISINOPRIL 5 MG TABLET PO SCH (08:32)
[2022-05-17] MEDS: risperiDONE 0.5 MG TABLET PO SCH ×2 (08:32→21:10)
[2022-05-17] MEDS: NEOMY/BACITRAC/POLYMI OINT 28.35 GM TUBE TOP SCH (08:34)
[2022-05-17] MEDS: PROTEIN SUPPLEMENT (PROSTAT) 30 ML LIQUID PO SCH (08:34)
[2022-05-17] MEDS: GLUCERNA SHAKE 237 ML CAN PO SCH ×3 (08:35→16:22)
[2022-05-17] MEDS: ARGININE/GLUTAMINE/CALCIUM BMB 1 EACH POWD.PACK PO SCH (11:22)
[2022-05-17 11:28] VITALS: BP 134/65
[2022-05-17 12:00] VITALS: BP 135/63
[2022-05-17] MEDS ORDERED: CLON1TAB12 PO (13:02)
[2022-05-17] MEDS ORDERED: FLUO20CA42 PO (13:02)
[2022-05-17 16:16] VITALS: BP 90/41
--- NOTE | 2022-05-17 19:30 | NUR ---
RECD PT IN BED, RESTING COMFORTABLY, NO DISTRESS NOTED.
[2022-05-17 20:31] VITALS: BP 107/55
[2022-05-17] MEDS: TAMSULOSIN HCL 0.4 MG CAP.SR.24H PO SCH (21:09)
[2022-05-17] MEDS: MIRTAZAPINE 15 MG TABLET PO SCH (21:09)
[2022-05-18 04:26] VITALS: BP 128/64
[2022-05-18] MEDS: LEVOTHYROXINE SODIUM 150 MCG TABLET PO SCH (06:10)
[2022-05-18] MEDS: CLONAZEPAM 1 MG TABLET PO SCH (08:37)
[2022-05-18] MEDS: FLUOXETINE HCL 20 MG CAPSULE PO SCH (08:55)
[2022-05-18] MEDS: risperiDONE 0.5 MG TABLET PO SCH ×2 (08:55→23:16)
[2022-05-18] MEDS: TIZANIDINE HCL 4 MG TABLET PO PRN (08:55)
[2022-05-18] MEDS: LISINOPRIL 5 MG TABLET PO SCH (08:55)
[2022-05-18] MEDS: MEGESTROL ACETATE 400 MG/10 ML LIQUID UDC PO SCH (08:55)
[2022-05-18] MEDS: PROPRANOLOL HCL 20 MG TABLET PO SCH ×3 (08:56→17:04)
[2022-05-18] MEDS: ARGININE/GLUTAMINE/CALCIUM BMB 1 EACH POWD.PACK PO SCH (08:56)
[2022-05-18] MEDS: PROTEIN SUPPLEMENT (PROSTAT) 30 ML LIQUID PO SCH (08:56)
[2022-05-18] MEDS: GLUCERNA SHAKE 237 ML CAN PO SCH ×3 (08:56→17:05)
[2022-05-18] MEDS: NEOMY/BACITRAC/POLYMI OINT 28.35 GM TUBE TOP SCH (08:57)
[2022-05-18] MEDS: BETHANECHOL CHLORIDE 10 MG TABLET PO SCH ×3 (08:57→17:04)
[2022-05-18 20:44] VITALS: BP 137/73
[2022-05-18] MEDS: MIRTAZAPINE 15 MG TABLET PO SCH (23:16)
[2022-05-18] MEDS: TAMSULOSIN HCL 0.4 MG CAP.SR.24H PO SCH (23:16)
--- NOTE | 2022-05-19 01:34 | NUR ---
RECD IN BED, ALERT/ORIENTED X 1-2, LESS LETHARGIC THIS TIME, DUE MEDS TAKEN WELL. SLEPT AT LONG INTERVALS.
[2022-05-19 04:47] VITALS: BP 137/63
[2022-05-19] MEDS: LEVOTHYROXINE SODIUM 150 MCG TABLET PO SCH (06:08)
[2022-05-19] MEDS: FLUOXETINE HCL 20 MG CAPSULE PO SCH (08:58)
[2022-05-19] MEDS: CLONAZEPAM 1 MG TABLET PO SCH (08:59)
[2022-05-19] MEDS: BETHANECHOL CHLORIDE 10 MG TABLET PO SCH ×3 (08:59→17:02)
[2022-05-19] MEDS: LISINOPRIL 5 MG TABLET PO SCH (08:59)
[2022-05-19] MEDS: PROPRANOLOL HCL 20 MG TABLET PO SCH ×3 (08:59→17:03)
[2022-05-19] MEDS: MEGESTROL ACETATE 400 MG/10 ML LIQUID UDC PO SCH (08:59)
[2022-05-19] MEDS: risperiDONE 0.5 MG TABLET PO SCH ×2 (08:59→20:53)
[2022-05-19] MEDS: GLUCERNA SHAKE 237 ML CAN PO SCH ×3 (09:00→17:03)
[2022-05-19] MEDS: PROTEIN SUPPLEMENT (PROSTAT) 30 ML LIQUID PO SCH (09:01)
[2022-05-19] MEDS: ARGININE/GLUTAMINE/CALCIUM BMB 1 EACH POWD.PACK PO SCH (09:02)
[2022-05-19] MEDS: NEOMY/BACITRAC/POLYMI OINT 28.35 GM TUBE TOP SCH (09:03)
[2022-05-19 09:21] VITALS: BP 139/72
[2022-05-19 17:15] VITALS: BP 130/63
[2022-05-19 19:30] VITALS: BP 157/82
[2022-05-19] MEDS: MIRTAZAPINE 15 MG TABLET PO SCH (20:53)
[2022-05-19] MEDS: TAMSULOSIN HCL 0.4 MG CAP.SR.24H PO SCH (20:54)
--- NOTE | 2022-05-19 22:00 | NUR ---
Staff reported that patient on the floor, seen patient on the floor lying on her right side, when asked what happen answered "I don't know" asked if she hit her head answer "No", also denies pain, ROM done WNL, assisted back to bed, skin assessments done, no injury noted, no new skin injury noted. Patient has no bump or redness on head, no vomiting, no dizziness noted. Patient has no change on baseline mentation, nahid chambesrl, Dr. Ferreira was notfied, no new order, unable to reach family/sister Swathi due no contact numbers on the chart. cont to monitor. Addendum: 05/20/22 at 0238 by CLIFFORD DANIEL RN this charting for 05/19/222039
[2022-05-20] MEDS: ACETAMINOPHEN 325 MG TABLET PO PRN (00:22)
[2022-05-20 04:01] VITALS: BP 141/64
[2022-05-20] MEDS: LEVOTHYROXINE SODIUM 150 MCG TABLET PO SCH (06:06)
[2022-05-20 08:00] VITALS: BP 139/74
[2022-05-20] MEDS: PROTEIN SUPPLEMENT (PROSTAT) 30 ML LIQUID PO SCH (08:24)
[2022-05-20] MEDS: GLUCERNA SHAKE 237 ML CAN PO SCH ×3 (08:24→17:24)
[2022-05-20] MEDS: FLUOXETINE HCL 20 MG CAPSULE PO SCH (08:25)
[2022-05-20] MEDS: MEGESTROL ACETATE 400 MG/10 ML LIQUID UDC PO SCH (08:25)
[2022-05-20] MEDS: BETHANECHOL CHLORIDE 10 MG TABLET PO SCH ×3 (08:26→17:26)
[2022-05-20] MEDS: CLONAZEPAM 1 MG TABLET PO SCH (08:27)
[2022-05-20] MEDS: LISINOPRIL 5 MG TABLET PO SCH (08:28)
[2022-05-20] MEDS: risperiDONE 0.5 MG TABLET PO SCH ×2 (08:39→20:32)
[2022-05-20] MEDS: PROPRANOLOL HCL 20 MG TABLET PO SCH ×3 (09:00→17:00)
[2022-05-20] MEDS: ARGININE/GLUTAMINE/CALCIUM BMB 1 EACH POWD.PACK PO SCH (10:05)
[2022-05-20] MEDS: NEOMY/BACITRAC/POLYMI OINT 28.35 GM TUBE TOP SCH (10:10)
[2022-05-20 14:31] LABS: MEAN CORPUSCULAR VOLUME 98.1 fL (75.5-95.3); PLATELET COUNT (AUTO) 317 K/uL (179-408)
[2022-05-20 14:42] LABS: BILIRUBIN,TOTAL 0.3 mg/dL (0.2-1.0); CREATININE 0.8 mg/dL (0.6-1.3); POTASSIUM 3.5 mmol/L (3.5-5.1); TOTAL PROTEIN, SERUM 6.9 g/dL (6.4-8.2)
[2022-05-20 17:03] VITALS: BP 109/47
--- NOTE | 2022-05-20 18:11 | NUR ---
Received report from AM nurse that patient had a fall last night. cage shift manager was unable to inform family regarding fall hence Sister at bedside made aware. Am medication administered, patient tolerated well. Patient is alert. Breathing normal on room air.No SOB noted. Patient has generalize weakness, she is confused; always trying to get out of bed. Patient is ambulatory with min assist and unsteady gate per Physical therapy. Dr. Luna notified of functional decline as mention by PT and MD order CBC,CMP,UA and Urine C&S. Propranolol held due to low BP.
[2022-05-20 20:00] VITALS: BP 111/54
[2022-05-20] MEDS: MIRTAZAPINE 15 MG TABLET PO SCH (20:32)
[2022-05-20] MEDS: TAMSULOSIN HCL 0.4 MG CAP.SR.24H PO SCH (20:35)
--- NOTE | 2022-05-20 21:31 | NUR ---
medicated w tylenol 650 mg p.o. for headache,relief afforrded.
[2022-05-21 04:00] VITALS: BP 120/69
--- NOTE | 2022-05-21 05:16 | NUR ---
Pt had 4 loose bowel movements with odor. Mandatory Supplementary Documentation for C. Difficile Test Requisiton completed. Waiting for stool to be collected. Contact Isolation observed.
[2022-05-21] MEDS: LEVOTHYROXINE SODIUM 150 MCG TABLET PO SCH (06:39)
[2022-05-21 07:31] VITALS: BP 119/70
[2022-05-21] MEDS: FLUOXETINE HCL 20 MG CAPSULE PO SCH (08:55)
[2022-05-21] MEDS: PROPRANOLOL HCL 20 MG TABLET PO SCH ×3 (08:56→17:10)
[2022-05-21] MEDS: risperiDONE 0.5 MG TABLET PO SCH ×2 (08:57→21:24)
[2022-05-21] MEDS: BETHANECHOL CHLORIDE 10 MG TABLET PO SCH ×3 (08:57→17:10)
[2022-05-21] MEDS: MEGESTROL ACETATE 400 MG/10 ML LIQUID UDC PO SCH (08:57)
[2022-05-21] MEDS: NEOMY/BACITRAC/POLYMI OINT 28.35 GM TUBE TOP SCH (08:58)
[2022-05-21] MEDS: CLONAZEPAM 1 MG TABLET PO SCH (08:59)
[2022-05-21] MEDS: ARGININE/GLUTAMINE/CALCIUM BMB 1 EACH POWD.PACK PO SCH (09:02)
[2022-05-21] MEDS: GLUCERNA SHAKE 237 ML CAN PO SCH ×3 (09:09→17:11)
[2022-05-21] MEDS: PROTEIN SUPPLEMENT (PROSTAT) 30 ML LIQUID PO SCH (09:09)
[2022-05-21] MEDS: LISINOPRIL 5 MG TABLET PO SCH (11:00)
[2022-05-21 16:22] VITALS: BP 107/57
--- NOTE | 2022-05-21 17:56 | NUR ---
Patient awake, alert, oriented x 1-2, not in any form of distress, on room air. She denies any pain or discomfort. She is compliant with medications and care. She is able to feed herself. Assisted with her needs promptly. Sister Gina at bedside. Wound care done as ordered with noted wound improvement/healing. Turned and repositioned patient every 2 hours. HILLARY Garrison examined wound with no new order. Call light and frequently used items placed within patient's reach. Fall precaution maintained.
[2022-05-21 20:20] VITALS: BP 110/59
[2022-05-21] MEDS: TAMSULOSIN HCL 0.4 MG CAP.SR.24H PO SCH (21:24)
[2022-05-21] MEDS: MIRTAZAPINE 15 MG TABLET PO SCH (21:24)
[2022-05-22 04:59] VITALS: BP 150/69
[2022-05-22] MEDS: LEVOTHYROXINE SODIUM 150 MCG TABLET PO SCH (06:10)
[2022-05-22 06:25] LABS: *BILIRUBIN,URIN NEGATIVE (NEGATIVE); *BLOOD, URINE NEGATIVE (NEGATIVE); *CLARITY,URINE CLOUDY (CLEAR); *COLOR,URINE LIGHT YELLOW (YELLOW); *KETONES,URINE NEGATIVE (NEGATIVE); *UROBILINOGEN,URINE 0.2 E.U./dl (NORMAL); LEUKOCYTE ESTERASE ,URINE 3+ (NEGATIVE); NITRITE, URINE POSITIVE (NEGATIVE); PH,URINE 5.5 (5.0-8.0); UGLUCOSE NEGATIVE (NEGATIVE)
[2022-05-22 06:40] LABS: BACTERIA,URINE MANY /HPF (NONE SEEN); RBC,URINE 0-3 /HPF (0-3); SQUAMOUS EPITHELIAL CELL,UR MODERATE /HPF (NONE SEEN); WBC,URINE TNTC /HPF (0-3)
[2022-05-22 07:43] VITALS: BP 144/77
[2022-05-22] MEDS: GLUCERNA SHAKE 237 ML CAN PO SCH ×3 (08:28→16:58)
[2022-05-22] MEDS: PROTEIN SUPPLEMENT (PROSTAT) 30 ML LIQUID PO SCH (08:29)
[2022-05-22] MEDS: PROPRANOLOL HCL 20 MG TABLET PO SCH ×3 (08:52→16:58)
[2022-05-22] MEDS: ARGININE/GLUTAMINE/CALCIUM BMB 1 EACH POWD.PACK PO SCH (08:53)
[2022-05-22] MEDS: CLONAZEPAM 1 MG TABLET PO SCH (08:53)
[2022-05-22] MEDS: LISINOPRIL 5 MG TABLET PO SCH (08:54)
[2022-05-22] MEDS: FLUOXETINE HCL 20 MG CAPSULE PO SCH (08:54)
[2022-05-22] MEDS: MEGESTROL ACETATE 400 MG/10 ML LIQUID UDC PO SCH (08:54)
[2022-05-22] MEDS: BETHANECHOL CHLORIDE 10 MG TABLET PO SCH ×3 (08:55→17:00)
[2022-05-22] MEDS: risperiDONE 0.5 MG TABLET PO SCH ×2 (08:56→23:24)
[2022-05-22] MEDS: NEOMY/BACITRAC/POLYMI OINT 28.35 GM TUBE TOP SCH (08:56)
[2022-05-22 15:31] VITALS: BP 99/46
--- NOTE | 2022-05-22 18:24 | NUR ---
Received Asleep,arousal to name,Sleep part of the morning, alert O x1-2 .Confused and disoriented.Needs attended. Fall precautions maintained. Tolerated PO Meds well. Incontinent of bowel and bladder. Kept clean and dry. Side-rails up for safety. No complaints present during the shift.
[2022-05-22 22:09] VITALS: BP 98/50
[2022-05-22] MEDS: TAMSULOSIN HCL 0.4 MG CAP.SR.24H PO SCH (23:23)
[2022-05-22] MEDS: MIRTAZAPINE 15 MG TABLET PO SCH (23:24)
--- NOTE | 2022-05-23 03:43 | NUR ---
IN BED RESTING, REPOSITIONED FOR COMFORT, NEEDS ATTENDED TO.SLEPT ON AND OFF.SAFETY PRECAUTIONS IN PLACE AND OBSERVED.
[2022-05-23 04:33] VITALS: BP 125/63
[2022-05-23] MEDS: LEVOTHYROXINE SODIUM 150 MCG TABLET PO SCH (06:22)
[2022-05-23 07:32] VITALS: BP 125/65
[2022-05-23] MEDS: GLUCERNA SHAKE 237 ML CAN PO SCH ×2 (08:39→12:18)
[2022-05-23] MEDS: PROTEIN SUPPLEMENT (PROSTAT) 30 ML LIQUID PO SCH (08:39)
[2022-05-23] MEDS: risperiDONE 0.5 MG TABLET PO SCH (09:52)
[2022-05-23] MEDS: TIZANIDINE HCL 4 MG TABLET PO PRN (09:52)
[2022-05-23] MEDS: CLONAZEPAM 1 MG TABLET PO SCH (09:53)
[2022-05-23] MEDS: FLUOXETINE HCL 20 MG CAPSULE PO SCH (09:53)
[2022-05-23] MEDS: LISINOPRIL 5 MG TABLET PO SCH (09:53)
[2022-05-23] MEDS: ARGININE/GLUTAMINE/CALCIUM BMB 1 EACH POWD.PACK PO SCH (09:54)
[2022-05-23] MEDS: MEGESTROL ACETATE 400 MG/10 ML LIQUID UDC PO SCH (09:54)
[2022-05-23] MEDS: PROPRANOLOL HCL 20 MG TABLET PO SCH ×2 (09:54→12:28)
[2022-05-23] MEDS: NEOMY/BACITRAC/POLYMI OINT 28.35 GM TUBE TOP SCH (09:54)
[2022-05-23] MEDS: BETHANECHOL CHLORIDE 10 MG TABLET PO SCH ×2 (09:55→12:20)
[2022-05-23 12:28] VITALS: BP 101/56
--- NOTE | 2022-05-23 12:30 | NUR ---
INTERDISCIPLINARY TEAM CONFERENCE
--- NOTE | 2022-05-23 13:46 | NUR ---
Pt is being discharged from acute rehab and admitted into [facility] floor. Pt is positive for C-diff and on contact precautions. Comfort measures provided, pt will remain in same room for the time being.
[2022-05-23] MEDS ORDERED: LISI-782 PO (16:10)
[2022-05-23] MEDS ORDERED: ACET-2154 PO (16:10)
[2022-05-23] MEDS ORDERED: RISP0.5T5 PO (16:10)
[2022-05-23] MEDS ORDERED: NUTR1PAC14 PO (16:10)
[2022-05-23] MEDS ORDERED: PROT30LI PO (16:10)
[2022-05-23] MEDS ORDERED: NUT.237L36 PO (16:11)
[2022-05-23] MEDS ORDERED: NEOM1OIN19 TP (16:11)
[2022-05-25] MEDS ORDERED: CRAN450T9 PO (14:32)
[2022-05-25] MEDS ORDERED: PROT30LI PO (14:32)
[2022-05-25] MEDS ORDERED: PANT40TA49 PO (14:32)
[2022-05-25] MEDS ORDERED: LEVO150T PO (14:32)
[2022-05-25] MEDS ORDERED: ACID1TAB4 PO (14:32)
[2022-05-25] MEDS ORDERED: ASPI-618 PO (14:32)
[2022-05-25] MEDS ORDERED: TAMS-3 PO (14:32)
[2022-05-25] MEDS ORDERED: Sulfameth/Trimeth 800/160 Mg PO (14:32)
[2022-05-25] MEDS ORDERED: MULT-594 PO (14:32)
--- NOTE | 2022-05-26 15:26 | NUR ---
INTERDISCIPLINARY TEAM CONFERENCE THIS WAS OBSERVED AND DONE ON 05/22/22 13:00
== END 2022-05-23 15:21 | disposition short-term general hospital (02) | DRG 871 ==
PROVIDERS: ADMIT Physical Medicine & Rehabilitation Pain Medicine; ATTEND Physical Medicine & Rehabilitation Pain Medicine
DX: A41.9 Sepsis, unspecified organism (principal); J15.9 Unspecified bacterial pneumonia; E87.2 Acidosis; M62.82 Rhabdomyolysis; R44.3 Hallucinations, unspecified; E86.1 Hypovolemia; G93.89 Other specified disorders of brain; F32.A Depression, unspecified; E87.6 Hypokalemia; F29 Unspecified psychosis not due to a substance or known physiological condition; S06.9X9S Unspecified intracranial injury with loss of consciousness of unspecified duration, sequela; W19.XXXS Unspecified fall, sequela; I10 Essential (primary) hypertension; S20.419A Abrasion of unspecified back wall of thorax, initial encounter; S30.0XXA Contusion of lower back and pelvis, initial encounter; S70.211A Abrasion, right hip, initial encounter; Z03.89 Encounter for observation for other suspected diseases and conditions ruled out; X58.XXXA Exposure to other specified factors, initial encounter; Y93.89 Activity, other specified; Y92.89 Other specified places as the place of occurrence of the external cause; Z87.820 Personal history of traumatic brain injury; Z90.49 Acquired absence of other specified parts of digestive tract; Z91.81 History of falling; E05.90 Thyrotoxicosis, unspecified without thyrotoxic crisis or storm; R26.81 Unsteadiness on feet; R53.1 Weakness; R53.82 Chronic fatigue, unspecified
CPT/HCPCS: 36415; 83735; 84100; 84443; 84484; 85025; 87077; 87086; 93005; 97161; 97535-GO-CO; A4663; A6209; A6213; J8999

== ENCOUNTER 2022-05-23 15:41 | Inpatient (IN) | payer MEDICARE ==
[~2022-05-23] VITALS: Ht 167.6 cm; Wt 39.0 kg
[2022-05-23 13:00] VITALS: BP 101/56
[2022-05-23 15:30] VITALS: BP 105/49
[2022-05-23] MEDS ORDERED: ACET-2154 PO (16:10)
[2022-05-23] MEDS ORDERED: LISI-782 PO (16:10)
[2022-05-23] MEDS ORDERED: NUTR1PAC14 PO (16:10)
[2022-05-23] MEDS ORDERED: RISP0.5T5 PO (16:10)
[2022-05-23] MEDS ORDERED: PROT30LI PO (16:10)
[2022-05-23] MEDS ORDERED: NEOM1OIN19 TP (16:11)
[2022-05-23] MEDS ORDERED: NUT.237L36 PO (16:11)
--- NOTE | 2022-05-23 17:08 | NUR ---
[facility] for [facility] status. Pt is a/o x 2-3 confused. Family aware of transfer of care. Comfort measures provided, call light within reach, will continue to monitor.
[2022-05-23] MEDS ORDERED: ACETAMINOPHEN 325 MG TABLET-SA PATIENTS-PAIN ONLY PO PRN (17:30)
[2022-05-23] MEDS ORDERED: ONDANSETRON 4 MG/2 ML VIAL IV PRN (17:30)
[2022-05-23] MEDS ORDERED: ACETAMINOPHEN 325 MG TABLET PO PRN (17:45)
[2022-05-23 20:03] VITALS: BP 119/52
[2022-05-23] MEDS: CEFTRIAXONE 1 G in IV DEXTROSE 5% 50 ML IV SCH (20:22)
[2022-05-23] MEDS: POTASSIUM CHLORIDE 20 MEQ in IV NS 1000 ML 1,000 ML IV PRN (20:22)
[2022-05-23] MEDS: MIRTAZAPINE 15 MG TABLET PO SCH (21:20)
[2022-05-23] MEDS: risperiDONE 0.5 MG TABLET PO SCH (21:20)
[2022-05-23] MEDS: TAMSULOSIN HCL 0.4 MG CAP.SR.24H PO SCH (21:20)
[2022-05-24 04:00] VITALS: BP 136/70
--- NOTE | 2022-05-24 05:15 | NUR ---
Slept well, no complaint of pain, with episodes of confusion. In fair condition.
[2022-05-24] MEDS: PANTOPRAZOLE SODIUM 40 MG TABLET.DR PO SCH (06:12)
[2022-05-24] MEDS: LEVOTHYROXINE SODIUM 150 MCG TABLET PO SCH (06:12)
[2022-05-24 07:02] LABS: HEMATOCRIT 42.3 % (31.2-41.9); MEAN CORPUSCULAR HEMOGLOBIN 32.7 uug (24.7-32.8); PLATELET COUNT (AUTO) 277 K/uL (179-408)
[2022-05-24 07:26] LABS: BILIRUBIN,TOTAL 0.4 mg/dL (0.2-1.0); CREATININE 0.6 mg/dL (0.6-1.3); MAGNESIUM 2.2 mg/dL (1.8-2.4); PHOSPHOROUS 3.6 mg/dL (2.5-4.9)
[2022-05-24] MEDS ORDERED: Medication Not On Formulary EA (Protein Supplement (Prosource) 30 ML) PO SCH (09:00)
[2022-05-24] MEDS ORDERED: LEVOTHYROXINE SODIUM 175 MCG TABLET PO SCH (09:00)
[2022-05-24 09:45] VITALS: BP 129/60
[2022-05-24] MEDS: PROTEIN SUPPLEMENT (PROSTAT) 30 ML LIQUID PO SCH (09:56)
[2022-05-24] MEDS: GLUCERNA 1.2 1000ML LIQUID PO SCH ×3 (09:56→17:16)
[2022-05-24] MEDS: TIZANIDINE HCL 4 MG TABLET PO PRN (09:57)
[2022-05-24] MEDS: FLUOXETINE HCL 20 MG CAPSULE PO SCH (09:57)
[2022-05-24] MEDS: ARGININE/GLUTAMINE/CALCIUM BMB 1 EACH POWD.PACK PO SCH (09:57)
[2022-05-24] MEDS: risperiDONE 0.5 MG TABLET PO SCH ×2 (09:57→20:15)
[2022-05-24] MEDS: CLONAZEPAM 1 MG TABLET PO SCH (09:58)
[2022-05-24] MEDS: MEGESTROL ACETATE 400 MG/10 ML LIQUID UDC PO SCH (10:00)
[2022-05-24] MEDS: BETHANECHOL CHLORIDE 10 MG TABLET PO SCH ×3 (10:01→17:16)
[2022-05-24] MEDS: LISINOPRIL 5 MG TABLET PO SCH (10:06)
--- NOTE | 2022-05-24 12:44 | NUR ---
WOUND CARE CONSULT: PT EATING AT THIS TIME. REVIEWED CHART, NURSING DOCUMENTATION AND PHOTOS WHICH INDICATE DRY ABRASIONS AND INTACT DEEP TISSUE INJURIES, PRESENT ON ADMISSION. DISCUSSED SKIN PROTECTION WITH NURSING STAFF. MD IN AGREEMENT WITH PLAN OF CARE.
[2022-05-24 12:48] VITALS: BP 116/51
[2022-05-24] MEDS: POTASSIUM CHLORIDE 20 MEQ in IV NS 1000 ML 1,000 ML IV PRN (14:25)
[2022-05-24 15:37] VITALS: BP 135/63
[2022-05-24] MEDS: CEFTRIAXONE 1 G in IV DEXTROSE 5% 50 ML IV SCH (17:16)
[2022-05-24] MEDS: MIRTAZAPINE 15 MG TABLET PO SCH (20:15)
[2022-05-24] MEDS: TAMSULOSIN HCL 0.4 MG CAP.SR.24H PO SCH (20:27)
[2022-05-24 20:42] VITALS: BP 115/65
[2022-05-25 04:21] VITALS: BP 122/59
[2022-05-25] MEDS: POTASSIUM CHLORIDE 20 MEQ in IV NS 1000 ML 1,000 ML IV PRN (05:25)
[2022-05-25] MEDS: LEVOTHYROXINE SODIUM 150 MCG TABLET PO SCH (06:00)
[2022-05-25] MEDS: PANTOPRAZOLE SODIUM 40 MG TABLET.DR PO SCH (06:00)
[2022-05-25] MEDS: LISINOPRIL 5 MG TABLET PO SCH (09:00)
[2022-05-25 09:45] VITALS: BP 108/43
[2022-05-25] MEDS: CLONAZEPAM 1 MG TABLET PO SCH (09:47)
[2022-05-25] MEDS: FLUOXETINE HCL 20 MG CAPSULE PO SCH (09:47)
[2022-05-25] MEDS: TIZANIDINE HCL 4 MG TABLET PO PRN (09:47)
[2022-05-25] MEDS: risperiDONE 0.5 MG TABLET PO SCH (09:47)
[2022-05-25] MEDS: PROTEIN SUPPLEMENT (PROSTAT) 30 ML LIQUID PO SCH (09:48)
[2022-05-25] MEDS: GLUCERNA 1.2 1000ML LIQUID PO SCH ×2 (09:48→12:28)
[2022-05-25] MEDS: ARGININE/GLUTAMINE/CALCIUM BMB 1 EACH POWD.PACK PO SCH (09:48)
[2022-05-25] MEDS: MEGESTROL ACETATE 400 MG/10 ML LIQUID UDC PO SCH (09:53)
[2022-05-25] MEDS: BETHANECHOL CHLORIDE 10 MG TABLET PO SCH ×2 (09:53→12:44)
[2022-05-25] MEDS ORDERED: SULFAMETH/TRIMETH 800/160 MG TABLET PO SCH (10:00)
[2022-05-25] MEDS ORDERED: PROTEIN SUPPLEMENT (PROSTAT) 30 ML LIQUID PO SCH (11:30)
[2022-05-25] MEDS ORDERED: ARGININE/GLUTAMINE/CALCIUM BMB 1 EACH POWD.PACK PO SCH (11:30)
[2022-05-25] MEDS ORDERED: CRAN450T9 PO (14:32)
[2022-05-25] MEDS ORDERED: TAMS-3 PO (14:32)
[2022-05-25] MEDS ORDERED: MULT-594 PO (14:32)
[2022-05-25] MEDS ORDERED: ACID1TAB4 PO (14:32)
[2022-05-25] MEDS ORDERED: PANT40TA49 PO (14:32)
[2022-05-25] MEDS ORDERED: ASPI-618 PO (14:32)
[2022-05-25] MEDS ORDERED: Sulfameth/Trimeth 800/160 Mg PO (14:32)
[2022-05-25] MEDS ORDERED: PROT30LI PO (14:32)
[2022-05-25] MEDS ORDERED: LEVO150T PO (14:32)
--- NOTE | 2022-05-25 16:33 | NUR ---
Pt is being discharged to [facility]. Sister at bedside, agreeable and aware of transfer. All personal belongings were taken home by sister. IV and ID bands removed. Report called to Angelito BLACKWOOD at [facility] , pt accepted to room 104A. no signs of acute distress.
[2022-05-25 16:42] VITALS: BP 119/52
== END 2022-05-25 16:35 | DRG 871 ==
LOC: MEDSURG3 15:41
PROVIDERS: ADMIT Internal Medicine; ATTEND Internal Medicine
DX: A41.9 Sepsis, unspecified organism (principal); G92.8 Other toxic encephalopathy; N39.0 Urinary tract infection, site not specified; D68.59 Other primary thrombophilia; B96.20 Unspecified Escherichia coli [E. coli] as the cause of diseases classified elsewhere; D75.89 Other specified diseases of blood and blood-forming organs; E03.9 Hypothyroidism, unspecified; Z74.09 Other reduced mobility; E87.6 Hypokalemia; Z87.820 Personal history of traumatic brain injury; Z90.49 Acquired absence of other specified parts of digestive tract; G93.89 Other specified disorders of brain; S30.0XXA Contusion of lower back and pelvis, initial encounter; X58.XXXA Exposure to other specified factors, initial encounter; Y93.9 Activity, unspecified; Y92.129 Unspecified place in nursing home as the place of occurrence of the external cause; Z91.81 History of falling; R26.81 Unsteadiness on feet; E05.90 Thyrotoxicosis, unspecified without thyrotoxic crisis or storm; Z87.01 Personal history of pneumonia (recurrent); M51.9 Unspecified thoracic, thoracolumbar and lumbosacral intervertebral disc disorder; Z20.822 Contact with and (suspected) exposure to COVID-19
CPT/HCPCS: 36415; 70450; 83605; 83735; 84100; 85025; G0378; J0696; J3480; J7040; J8999; Z7610